=== PATIENT | female | born 1980 | race Caucasian/White ===

== ENCOUNTER 2016-10-17 07:30 | Emergency (ER) | payer BC ==
[~2016-10-17] VITALS: Ht 167.6 cm; Wt 115.2 kg
[~2016-10-17 07:30] MED LIST: BREA1EAC5 MC; DCS100C PO; HYDR-3720 PO; IBP800T PO; OXYC-272 PO; PREN1TAB39 PO
[2016-10-17 07:59] LABS: BILIRUBIN,URINE NEGATIVE (NEGATIVE); KETONES,URINE NEGATIVE (NEGATIVE); LEUKOCYTE ESTERASE ,URINE 2+ (NEGATIVE); NITRITE,URINE NEGATIVE (NEGATIVE); PH,URINE 6 (5-9); PROTEIN,URINE 1+ (NEGATIVE); UROBILINOGEN,URINE NORMAL (NORMAL)
[2016-10-17 08:12] LABS: SQUAMOUS EPITHELIAL CELL,UR >50 /HPF
[2016-10-17 08:13] LABS: YEAST,URINE FEW /HPF
--- NOTE | 2016-10-17 08:15 | ED General ---
General Chief Complaint: Abdominal/GI Problems Stated Complaint: 6 WKS PG,ABD PAIN LWR BACK PAIN Nursing Triage Note: PT 6 WEEKS , CC OF ABD PAIN, LOW BACK PAIN, VOMITED 3-4X'S THIS A.M. Nursing Sepsis Screen: No Definite Risk Source of Information: Patient Exam Limitations: No Limitations History of Present Illness Time Seen by Provider: 07:53 Initial Comments Here with complaint of low back pain since last night. Over the last day or 2 she's had some upset stomach and then the back pain last night. This morning she's vomited a few times. Denies dysuria or diarrhea. Denies vaginal discharge. Apparently had an ultrasound on Sunday which showed intrauterine . She is approximately 6 weeks . Denies blood in vomit or stool. Denies vaginal bleeding. Has not been sexually active since becoming . Timing/Duration: 1-2 Days Severity: Moderate Associated Systoms: No Fever/Chills, Nausea/Vomiting, No Shortness of Air, No Weakness Allergies and Home Medications Allergies Coded Allergies: Penicillins (Verified Allergy, Unknown, HIVES, 08/21/11) Home Medications No Active Prescriptions or Reported Meds Constitutional: see HPI, No chills, No fever Respiratory: no symptoms reported Cardiovascular: no symptoms reported Gastrointestinal: see HPI, No diarrhea, nausea, vomiting Genitourinary: no symptoms reported Expected Date of Delivery: Jun 07, 2017 Musculoskeletal: see HPI, back pain (left greater than right) Skin: no symptoms reported Psychiatric/Neurological: Denies Headache, Denies Weakness All Other Systems Reviewed Negative Unless Noted: Yes Past Ecmavth-Tlbdrj-Ivggrz Hx Patient Social History Alcohol Use: Denies Use Recreational Drug Use: No Smoking Status: Never a Smoker Recent Foreign Travel: No Contact w/Someone Who Travel: No Recent Infectious Disease Expo: No Recent Hopitalizations: No Immunizations Up To Date Tetanus Booster (TDap): Less than 5yrs Seasonal Allergies Seasonal Allergies: Yes Surgeries HX Surgeries: Yes Surgeries: Section Respiratory Hx Respiratory Disorders: Yes (SPORTS INDUCED ASTHMA) Respiratory Disorders: Asthma Cardiovascular Hx Cardiac Disorders: No Neurological Hx Neurological Disorders: No Reproductive System : Yes Hx : 3 Hx Para: 2 Hx Reproductive Disorders: No Genitourinary Hx Genitourinary Disorders: No Gastrointestinal Hx Gastrointestinal Disorders: No Musculoskeletal Hx Musculoskeletal Disorders: No Endocrine Hx Endocrine Disorders: No HEENT HX ENT Disorders: No Cancer Hx Cancer: No Psychosocial Hx Psychiatric Problems: No Integumentary HX Skin/Integumentary Disorder: No Blood Transfusions Hx Blood Disorders: No Reviewed Nursing Assessment Reviewed/Agree w Nursing PMH: Yes Family Medical History Family Medial History: Family history: Diabetes mellitus 03 FATHER History of - disorder 09 BROTHER (AUSTIC) Physical Exam Vital Signs Vital Sign - Last 12Hours 10/17/16 07:39 Temp 96.4 Pulse 67 Resp 20 B/P (MAP) 122/71 Pulse Ox 99 O2 Delivery Room Air Capillary Refill : Less Than 3 Seconds General Appearance: No Apparent Distress, WD/WN HEENT: PERRL/EOMI, Pharynx Normal Neck: Non Tender, Supple Respiratory: Lungs Clear, Normal Breath Sounds Cardiovascular: Regular Rate, Rhythm, No Murmur Gastrointestinal: Non Tender, Soft Back: No CVA Tenderness, No Vertebral Tenderness, Other (tender to the area of the left low back and right low back in a band across the low back but no specific vertebral tenderness.) Extremity: Normal Range of Motion, Non Tender Neurologic/Psychiatric: Alert, Oriented x3 Skin: Normal Color, Warm/Dry Progress/Results/Core Measures Results/Orders Lab Results Laboratory Tests Test 10/17/16 07:48 Range/Units Urine Color YELLOW Urine Clarity CLEAR Urine pH 6 5-9 Urine Specific Halliday 1.025 H 1.016-1.022 Urine Protein 1+ H NEGATIVE Urine Glucose (UA) NEGATIVE NEGATIVE Urine Ketones NEGATIVE NEGATIVE Urine Nitrite NEGATIVE NEGATIVE Urine Bilirubin NEGATIVE NEGATIVE Urine Urobilinogen NORMAL NORMAL MG/DL Urine Leukocyte Esterase 2+ H NEGATIVE Urine RBC (Auto) 2+ H NEGATIVE Urine RBC 2-5 H /HPF Urine WBC 5-10 H /HPF Urine Squamous Epithelial Cells >50 H /HPF Urine Crystals PRESENT H /LPF Urine Amorphous Sediment RARE CORA URATES H /LPF Urine Bacteria TRACE /HPF Urine Casts NONE /LPF Urine Mucus MODERATE H /LPF Urine Yeast FEW H /HPF Urine Culture Indicated YES My Orders Orders - PRIYANK LOCO MD Ua Culture If Indicated (10/17/16 07:36) Urine Culture (10/17/16 07:48) Ondansetron Oral Dissolve Tab (Zofran (10/17/16 09:33) Fluconazole Tablet (Ed Only) (Diflucan T (10/17/16 09:33) Vital Signs/I&O Vital Sign - Last 12Hours 10/17/16 07:39 Temp 96.4 Pulse 67 Resp 20 B/P (MAP) 122/71 Pulse Ox 99 O2 Delivery Room Air Blood Pressure Mean: 88 Progress Note : Progress Note Seen and evaluated. UA ordered. Patient is O+ blood type per records. Ultrasound apparently done at her OB doctor's office but no records here. Monitor patient. We did obtain copy of the OB records from her doctor's office. Ultrasound was done in the office and shows 6 weeks IUP. UA complete and does show yeast and question of urinary tract infection. Patient had just nausea. Zofran 4 mg by mouth given and this essentially resolved her symptoms. She did receive Diflucan 150 mg by mouth. Discharged home with return precautions. Patient verbalize understanding instructions and agreement with plan. Departure Impression Impression: Primary Impression: Nausea and vomiting Qualified Codes: R11.2 - Nausea with vomiting, unspecified Additional Impressions: Low back pain Qualified Codes: M54.5 - Low back pain Urinary tract infection Qualified Codes: N30.00 - Acute cystitis without hematuria Vaginal yeast infection Disposition: HOME, SELF-CARE Condition: Improved Departure-Patient Inst. Decision time for Depature: 10:11 Referrals: MONIE ROBLES DO (PCP) Primary Care Physician ANASTASIA RUBIN MD (Family) Primary Care Physician Patient Instructions: Nausea and Vomiting of (DC), Urinary Tract Infection, Adult (DC), Vaginal Yeast Infection (DC) Add. Discharge Instructions: All discharge instructions reviewed with patient and/or family. Voiced understanding. Drink plenty of fluids. Follow-up with your doctor this week for recheck and further evaluation. Return for worse pain, fever, vomiting, weakness, rhythm problems or other concerns as needed. Scripts Ondansetron (Ondansetron Odt) 4 Mg Tab.rapdis 4 MG PO Q6H Y for NAUSEA/VOMITING, #5 TAB 0 Refills Prov: PRIYANK LOCO MD 10/17/16 Cephalexin (Cephalexin) 500 Mg Tablet 500 MG PO BID for 7 Days, #14 TAB 0 Refills Prov: PRIYANK LOCO MD 10/17/16 PRIYANK LOCO MD Oct 17, 2016 08:15
[2016-10-17] MEDS ORDERED: FLUCONAZOLE 150 MG TABLET (ED ONLY) PO STA (09:33)
[2016-10-17] MEDS ORDERED: ONDANSETRON 4 MG (ZOFRAN) ORAL DISSOLVE TAB SL STA (09:33)
[2016-10-17] MEDS ORDERED: ONDA4TAB11 PO (10:13)
[2016-10-17] MEDS ORDERED: CEPH500T PO (10:13)
[2016-10-17 10:19] VITALS: BP 122/71
== END 2016-10-17 10:19 | disposition home or self-care (01) ==
LOC: EDUNIT# 07:30 → ER 07:33
DX: O23.41 Unspecified infection of urinary tract in pregnancy, first trimester (principal); O23.591 Infection of other part of genital tract in pregnancy, first trimester; B37.3 Candidiasis of vulva and vagina; O99.52 Diseases of the respiratory system complicating childbirth; J45.909 Unspecified asthma, uncomplicated; Z3A.01 Less than 8 weeks gestation of pregnancy; Z87.59 Personal history of other complications of pregnancy, childbirth and the puerperium
CPT/HCPCS: 81000; 87088; 99283

== ENCOUNTER 2017-05-23 11:50 | Outpatient (CLI) | payer BC ==
[~2017-05-23] VITALS: Ht 167.6 cm; Wt 120.4 kg
[~2017-05-23 11:50] MED LIST changes: +CEPH500T PO; +ONDA4TAB11 PO
[2017-05-23 11:59] VITALS: BP 111/78
== END 2017-05-23 12:35 | disposition home or self-care (01) ==
LOC: PREOP 11:50
PROVIDERS: ATTEND Obstetrics & Gynecology
DX: Z01.818 Encounter for other preprocedural examination (principal); Z11.2 Encounter for screening for other bacterial diseases; O34.219 Maternal care for unspecified type scar from previous cesarean delivery
CPT/HCPCS: 87081

== ENCOUNTER 2017-06-04 10:55 | Inpatient (IN) | payer BC ==
[~2017-06-04] VITALS: Ht 167.6 cm; Wt 120.4 kg
[~2017-06-04 10:55] MED LIST changes: +CITRIC ACID/SOB CIT (BICITRA) 30 ML UDC ONE; +FAMOTIDINE 20MG/2ML IV (PEPCID) ONE; +LACTATED RINGERS 1,000 ML IV ONE; +METOCLOPRAMIDE INJ 10 MG/2 ML (REGLAN) ONE; +ceFAZolin 2 GM IV Premixed 50 ML ONE; +metroNIDAZOLE 500MG/100ML IVPB 100 ML ONE
[2017-06-04 11:05] VITALS: BP 118/58
--- OUTSIDE RECORDS SUMMARY | 2017-06-04 11:23 | XMS REPORT | Continuity of Care Document ---
Author Author [facility] Organization [facility] Address Unknown Phone Unavailable Allergies Active Description Code Type Severity Reaction Onset Reported/Identified Relationship to Patient Clinical Status Yes Penicillins [id number] Drug Allergy Unknown HIVES 08/21/2011 Yes Penicillins [id number] Drug Allergy Mild RASH 05/23/2017 Medications There is no data. Problems Date Dx Coded Attending Type Code Diagnosis Diagnosed By 06/04/2011 Ot 644.03 08/23/2011 Ot 660.31 PERSIST OCCIPTPOST-DELIV 08/23/2011 Ot 661.21 UTERINE INERT NEC-DELIV 08/23/2011 Ot V06.1 DIPHTHERIA- TETANUS-PERTUSSIS, COMBINED [ 08/23/2011 Ot V27.0 DELIVER- SINGLE LIVEBORN 05/31/2013 ANASTASIA RUBIN MD Ot 218.2 SUBSEROUS LEIOMYOMA 05/31/2013 ANASTASIA RUBIN MD Ot 654.21 PREV DELIVRY W/ OR W/O MENT ANT 05/31/2013 ANASTASIA RUBIN MD Ot 663.21 CORD COMPRESS NEC-DELIV 05/31/2013 ANASTASIA RUBIN MD Ot 663.31 CORD ENTANGLE NEC-DELIV 05/31/2013 ANASTASIA RUBIN MD Ot 780.2 SYNCOPE AND COLLAPSE 05/31/2013 ANASTASIA RUBIN MD Ot V27.0 DELIVER-SINGLE LIVEBORN 06/22/2013 VIRAJ COREA APRN Ot 724.5 BACKACHE NOS 06/02/2014 Ot 787.02 06/02/2014 Ot 789.00 06/02/2014 ANASTASIA RUBIN MD Ot 654.23 06/02/2014 ANASTASIA RUBIN MD Ot V72.84 06/02/2014 ANASTASIA RUBIN MD, Ot V74.8 06/02/2014 Ot 787.02 06/02/2014 Ot 789.00 06/02/2014 SCOTTIE BOCANEGRA, ANASTASIA Brijesh Ot 654.23 06/02/2014 SCOTTIE BOCANEGRA, ANASTASIA Brijesh Ot V72.84 06/02/2014 SCOTTIE BOCANEGRA, ANASTASIA Brijesh Ot V74.8 08/16/2014 Ot 787.02 08/16/2014 Ot 789.00 08/16/2014 SCOTTIE BOCANEGRA, ANASTASIA Brijesh Ot 654.23 08/16/2014 SCOTTIE BOCANEGRA, ANASTASIA Coley Ot V72.84 08/16/2014 SCOTTIE BOCANEGRA, ANASTASIA Brijesh Ot V74.8 04/15/2015 Ot 787.02 04/15/2015 Ot 789.00 04/15/2015 SCOTTIE BOCANEGRA, ANASTASIA Brijesh Ot 654.23 04/15/2015 SCOTTIE BOCANEGRA, ANASTASIA Brijesh Ot V72.84 04/15/2015 SCOTTIE BOCANEGRA, ANASTASIA Coley Ot V74.8 04/15/2015 Ot 787.02 04/15/2015 Ot 789.00 04/15/2015 SCOTTIE BOCANEGRA, ANASTASIA Coley Ot 654.23 04/15/2015 SCOTTIE BOCANEGRA, ANASTASIA Brijesh Ot V72.84 04/15/2015 SCOTTIE BOCANEGRA, ANASTASIA Brijesh Ot V74.8 05/11/2015 Ot 787.02 05/11/2015 Ot 789.00 05/11/2015 SCOTTIE BOCANEGRA, ANASTASIA G Ot 654.23 05/11/2015 SCOTTIE BOCANEGRA, ANASTASIA G Ot V72.84 05/11/2015 SCOTTIE BOCANEGRA, ANASTASIA Coley Ot V74.8 10/17/2016 PRIYANK LOCO MD Ot B37.3 CANDIDIASIS OF VULVA AND VAGINA 10/17/2016 PRIYANK LOCO MD Ot J45.909 UNSPECIFIED ASTHMA, UNCOMPLICATED 10/17/2016 PRIYANK LOCO MD Ot O23.41 UNSP INFCT OF URINARY TRACT IN 10/17/2016 PRIYANK LOCO MD Ot O23.591 INFECTION OTH PRT GENITL TRCT IN PREGNAN 10/17/2016 PRIYANK LOCO MD Ot O99.52 DISEASES OF THE RESPIRATORY SYSTEM COMPL 10/17/2016 PRIYANK LOCO MD Ot O99.89 OTH DISEASES AND CONDITIONS COMPL PREG/C 10/17/2016 PRIYANK LOCO MD, Ot Z3A.01 LESS THAN 8 WEEKS GESTATION OF 10/17/2016 PRIYANK LOCO MD, Ot Z87.59 PERSONAL HISTORY OF COMP OF PREG, CHLDBR 10/19/2016 PRIYANK LOCO MD Ot B37.3 CANDIDIASIS OF VULVA AND VAGINA 10/19/2016 PRIYANK LOCO MD Ot J45.909 UNSPECIFIED ASTHMA, UNCOMPLICATED 10/19/2016 PRIYANK LOCO MD Ot O23.41 UNSP INFCT OF URINARY TRACT IN 10/19/2016 PRIYANK LOCO MD, Ot O23.591 INFECTION OTH PRT GENITL TRCT IN PREGNAN 10/19/2016 PRIYANK LOCO MD Ot O99.52 DISEASES OF THE RESPIRATORY SYSTEM COMPL 10/19/2016 PRIYANK LOCO MD Ot O99.89 OTH DISEASES AND CONDITIONS COMPL PREG/C 10/19/2016 PRIYANK LOCO MD, Ot Z3A.01 LESS THAN 8 WEEKS GESTATION OF 10/19/2016 PRIYANK LOCO MD, Ot Z87.59 PERSONAL HISTORY OF COMP OF PREG, CHLDBR 03/23/2017 ANASTASIA RUBIN MD Ot 654.23 PREV DELIVERY, ANTEPARTUM COND 03/23/2017 ANASTASIA RUBIN MD, Ot V72.84 EXAM PRE-OPERATIVE NOS 03/23/2017 ANASTASIA RUBIN MD, Ot V74.8 SCREEN-BACTERIAL DIS NEC 05/24/2017 ANASTASIA RUBIN MD, Ot O34.219 MATERNAL CARE FOR UNSP TYPE SCAR FROM NC 05/24/2017 ANASTASIA RUBIN MD, Ot Z01.818 ENCOUNTER FOR OTHER PREPROCEDURAL EXAMIN 05/24/2017 ANASTASIA RUBIN MD, Ot Z11.2 ENCOUNTER FOR SCREENING FOR OTHER BACTER Procedures Code Description Performed By Performed On 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/21/2011 74.1 LOW CERVICAL 08/21/2011 72.79 VACUUM EXTRACT DEL NEC 05/29/2013 74.1 LOW CERVICAL 05/29/2013 Results Test Result Range Complete urinalysis with reflex to culture - 10/17/16 07:48 Urine color determination YELLOW NRG Urine clarity determination CLEAR NRG Urine pH measurement by test strip 6 5-9 Specific gravity of urine by test strip 1.025 1.016- 1.022 Urine protein assay by test strip, semi-quantitative 1+ NEGATIVE Urine glucose detection by automated test strip NEGATIVE NEGATIVE Erythrocytes detection in urine sediment by light microscopy 2+ NEGATIVE Urine ketones detection by automated test strip NEGATIVE NEGATIVE Urine nitrite detection by test strip NEGATIVE NEGATIVE Urine total bilirubin detection by test strip NEGATIVE NEGATIVE Urine urobilinogen measurement by automated test strip (mass/volume) NORMAL NORMAL Urine leukocyte esterase detection by dipstick 2+ NEGATIVE Automated urine sediment erythrocyte count by microscopy (number/high power field) [HPF] NRG Automated urine sediment leukocyte count by microscopy (number/high power field ) [HPF] NRG Bacteria detection in urine sediment by light microscopy TRACE NRG Squamous epithelial cells detection in urine sediment by light microscopy >50 NRG Crystals detection in urine sediment by light microscopy PRESENT NRG Casts detection in urine sediment by light microscopy NONE NRG Mucus detection in urine sediment by light microscopy MODERATE NRG Complete urinalysis with reflex to culture YES NRG Yeast detection in urine sediment by light microscopy FEW NRG Amorphous sediment detection in urine sediment by light microscopy RARE CORA URATES NRG Bacterial urine culture - 10/17/16 07:48 URINE CULTURE RESULTS 10,000/ML - 100,000/ML NRG Methicillin resistant Staphylococcus aureus (MRSA) screening culture - 12:15 Methicillin resistant Staphylococcus aureus (MRSA) screening culture NEG NRG Encounters ACCT No. Visit Date/Time Discharge Status Pt. Type Provider Facility Loc./Unit Complaint [id number] 05/23/2017 11:50:00 05/23/2017 12:35:00 DIS Outpatient ANASTASIA RUBIN MD [facility] PREOP PREVIOUS [id number] 10/17/2016 07:33:00 10/17/2016 10:19:00 DIS Emergency PRIYAKN LOCO MD [facility] ER 6 WKS PG,ABD PAIN LWR BACK PAIN [id number] 06/22/2013 15:24:00 06/22/2013 17:07:00 DIS Emergency VIRAJ COREA APRN [facility] ER BACK PAIN [id number] 05/29/2013 09:50:00 05/31/2013 14:40:00 DIS Inpatient ANASTASIA RUBIN MD [facility] WS PREVIOUS [id number] 05/27/2013 09:03:00 05/27/2013 23:59:59 CLS Outpatient ANASTASIA RUBIN MD [facility] PREOP PREVIOUS [id number] 06/04/2017 13:00:00 PEN Preadmit ANASTASIA RUBIN MD PREVIOUS [id number] 08/21/2011 07:36:00 Document Registration [id number] 06/04/2011 00:05:00 Document Registration [id number] 11/25/2010 10:17:00 Document Registration 074/17/04/17/2017 16:11:30 04/17/2017 23:59:59 CLS Outpatient Katherine Rodriguez
[2017-06-04] MEDS ORDERED: LACTATED RINGERS 1,000 ML IV SCH (11:29)
[2017-06-04] MEDS ORDERED: FAMOTIDINE 20MG/2ML IV (PEPCID) IV ONE (11:30)
[2017-06-04] MEDS ORDERED: METOCLOPRAMIDE INJ 10 MG/2 ML (REGLAN) IV ONE (11:30)
[2017-06-04] MEDS ORDERED: CITRIC ACID/SOB CIT (BICITRA) 30 ML UDC PO ONE (11:30)
[2017-06-04] MEDS ORDERED: metroNIDAZOLE 500MG/100ML IVPB 100 ML IV ONE ×2 (11:30→11:45)
[2017-06-04] MEDS ORDERED: D5 LR IV SOLUTION 1,000 ML IV SCH (11:41)
[2017-06-04] MEDS ORDERED: ceFAZolin 2 GM IV Premixed 50 ML IV ONE (11:45)
[2017-06-04] MEDS ORDERED: MEPERIDINE (DEMEROL) INJ 100 MG/ML IM PRN (11:45)
[2017-06-04] MEDS ORDERED: MEASLES,MUMPS,RUBELLA 1 EA INJ SC ONE (11:45)
[2017-06-04] MEDS ORDERED: ceFAZolin INJECTION 2,000 MG in NS (IVPB) 100 ML IV ONE (11:45)
[2017-06-04] MEDS ORDERED: ONDANSETRON 4 MG/2 ML (SDV) Z0FRAN IVP PRN (11:45)
[2017-06-04] MEDS ORDERED: TETANUS,DIPTH,PERTUSS P/F (BOOSTRIX) 0.5 ML VIAL IM ONE (11:45)
[2017-06-04] MEDS ORDERED: PROMETHAZINE INJ 25 MG/ML (PHENERGAN) AMP IM PRN (11:45)
--- NOTE | 2017-06-04 11:46 | Progress Note-Pre Operative ---
Pre-Operative Progress Note H&P Reviewed The H&P was reviewed, patient examined and no changes noted. Date Seen by Provider: Jun 04, 2017 Time Seen by Provider: 11:46 Date H&P Reviewed: Jun 04, 2017 Time H&P Reviewed: 11:46 Pre-Operative Diagnosis: 39+ week gestation admitted for repeat ANASTASIA RUBIN MD Jun 04, 2017 11:46 am
[2017-06-04] MEDS: LACTATED RINGERS 1,000 ML IV SCH ×2 (11:49→12:39)
--- NOTE | 2017-06-04 11:50 | History & Physical ---
History and Physical Date Seen by Provider: Jun 04, 2017 Time Seen by Provider: 11:46 This patient is a 36-year-old 2 white female admitted now 39-4/ 7 weeks' gestation for a repeat delivery. She had previously requested removal of her fallopian tubes to decrease her lifetime risk for cancer. Has been discussed previously in clinic on several occasions is discussed again today. She is comfortable with that decision understands and wished she will lose her fertility but excepts that undesired side effects in order to gain the protection from cancer she denies rupture membranes or bleeding. A GBS culture was negative. Allergies are to penicillin which causes a rash Occasions are vitamins Surgical surgical and social histories are per the antepartum record HEENT exam is normal Neck is supple no lymphadenopathy no thyromegaly Abdomen is gravid soft nontender nondistended Extremities Showed no clubbing or cyanosis. There is no Homans sign. Pelvic exam is deferred Assessment and plan 39+ week gestation in patient with previous C-sections 2. Patient also request risk reducing salpingectomy. Surgical risks and complications recovery and follow-up have been fully discussed patient is ready to proceed. Allergies and Home Medications Allergies Coded Allergies: Penicillins (Verified Allergy, Mild, RASH, 05/23/17) Home Medications No Active Prescriptions or Reported Meds Patient Home Medication List Home Medication List Reviewed: Yes ANASTASIA RUBIN MD Jun 04, 2017 11:50 am
[2017-06-04] MEDS ORDERED: D5 LR IV SOLUTION 1,000 ML IV ONE (11:51)
[2017-06-04 12:10] VITALS: BP 138/69
[2017-06-04 12:25] LABS: BASOPHILS % (AUTO) 0 % (0-10); EOSINOPHILS # (AUTO) 0.2 10^3/uL (0.0-0.3); EOSINOPHILS % (AUTO) 2 % (0-10); HEMATOCRIT 35 % (35-52); LYMPHOCYTES # (AUTO) 2.6 X 10^3 (1.0-4.0); LYMPHOCYTES % (AUTO) 29 % (12-44); MEAN CORPUSCULAR HEMOGLOBIN 29 PG (25-34); MEAN CORPUSCULAR HGB CONC 34 G/DL (32-36); MEAN CORPUSCULAR VOLUME 84 FL (80-99); MEAN PLATELET VOLUME 11.3 FL (7.4-10.4); MONOCYTES # (AUTO) 0.4 X 10^3 (0.0-1.0); MONOCYTES % (AUTO) 5 % (0-12); NEUTROPHILS # (AUTO) 5.5 X 10^3 (1.8-7.8); NEUTROPHILS % (AUTO) 63 % (42-75); PLATELET COUNT 175 10^3/uL (130-400); RED BLOOD COUNT 4.21 10^6/uL (4.35-5.85); RED CELL DISTRIBUTION WIDTH 14.3 % (10.0-14.5); WHITE BLOOD COUNT 8.8 10^3/uL (4.3-11.0)
[2017-06-04] MEDS ORDERED: ONDANSETRON 4 MG/2 ML (SDV) Z0FRAN ONE (12:33)
[2017-06-04] MEDS ORDERED: OXYTOCIN/NORMAL SALINE 500 ML IV ONE ×2 (12:33→13:36)
[2017-06-04] MEDS ORDERED: ONDANSETRON 4 MG/2 ML (SDV) Z0FRAN IV PRN (13:45)
[2017-06-04] MEDS ORDERED: NALOXONE 0.4 MG/ML 1 ML (NARCAN) VIAL IV PRN (13:45)
[2017-06-04] MEDS ORDERED: diphenhydrAMINE 50 MG/ML INJ (BENADRYL) IV PRN (13:45)
[2017-06-04 15:00] VITALS: BP 118/69
[2017-06-04] MEDS ORDERED: IBUP-1780 PO (15:03)
[2017-06-04] MEDS ORDERED: OXYC-465 PO (15:03)
[2017-06-04] MEDS ORDERED: DOCU100C37 PO (15:03)
--- NOTE | 2017-06-04 15:04 | Discharge Instructions ---
Discharge Instructions Discharge Medications New, Converted or Re-Newed RX: RX on Chart Patient Instructions Patient Instructions: As directed Return to The Hospital For: As directed Activity & Diet Discharge Diet: No Restrictions Activity as Tolerated: No Orders-Post D/C & Referrals Follow Up Appt: RTC at any time your available after June 05, 2017 for incision check and staple removal. Call to make follow up appt. for patient in 4 weeks. Wound Care: Do not remove isabell and patient is discharged on June 05, 2017 Activity Per routine post instructions. Please call in RX to patient pharmacy. Diet as tolerated Patient may shower or tub bathe as desired. Continue home meds ANASTASIA RUBIN MD Jun 04, 2017 3:04 pm
[2017-06-04] MEDS: KETOROLAC 30 MG/ML VIAL IVP SCH ×2 (16:22→21:44)
[2017-06-04] MEDS: OXYTOCIN/NORMAL SALINE 500 ML IV SCH (16:22)
[2017-06-04 16:46] LABS: BILIRUBIN,URINE NEGATIVE (NEGATIVE); CLARITY,URINE CLEAR; COLOR,URINE YELLOW; GLUCOSE, URINE (UA) NEGATIVE (NEGATIVE); KETONES,URINE NEGATIVE (NEGATIVE); LEUKOCYTE ESTERASE ,URINE NEGATIVE (NEGATIVE); NITRITE,URINE NEGATIVE (NEGATIVE); PH,URINE 6.5 (5-9); PROTEIN,URINE NEGATIVE (NEGATIVE); UROBILINOGEN,URINE NORMAL (NORMAL)
[2017-06-04 16:55] LABS: BACTERIA,URINE MODERATE /HPF
[2017-06-04 17:45] VITALS: BP 96/55
[2017-06-04 19:57] VITALS: BP 112/54
[2017-06-04] MEDS: DOCUSATE SODIUM 100 MG (COLACE) CAP PO SCH (21:44)
--- NOTE | 2017-06-04 23:50 | OPERATIVE REPORT ---
DATE OF SERVICE: 06/04/2017 PREOPERATIVE DIAGNOSES: A 39+ weeks gestation with previous sections, admitted for repeat section with mild oligohydramnios. POSTOPERATIVE DIAGNOSES: A 39+ weeks gestation with previous sections, admitted for repeat section with mild oligohydramnios. OPERATIVE PROCEDURE: Repeat low transverse delivery of a viable male with Apgars that are 7 and 8 and 8 at 1 and 5 and 10 minutes respectively, weight 7 lbs. 8 oz. Cord blood pH was 7.21 and a time of 13:07. OPERATIVE DESCRIPTION: With the patient in the supine position under satisfactory spinal anesthesia, she was prepped and draped in the usual fashion for abdominal surgery. A repeat Pfannenstiel incision was made through the skin by removing the patient's previous Pfannenstiel incisional scar. The abdomen was then entered in the usual manner. Bladder retractor was placed into position and clean scalpel was used to make a 4 cm hysterotomy incision transversely across the lower uterine segment that was extended by blunt dissection, releasing a small amount of clear fluid on hysterotomy. A vigorous viable male was delivered via the uterine incision. Infant had Apgars and weight that is noted above. Cord blood and a time were noted above. The was bulb suctioned on delivery of the head again on completion of delivery. The umbilical cord was doubly clamped and cut and the infant was passed to the pediatric nurse in attendance for delivery. After cord bloods were obtained. The placenta delivered spontaneously Iglesias. It was normal with a 3-vessel cord. The uterus was exteriorized, the interior wiped clean with a wet laparotomy sponge. Uterine incision was then closed with a running lock suture of 2-0 Vicryl. Hemostasis was complete. The uterus was compressed kimberley nicely. There were numerous fibroids on and in the wall of the uterus. The patient had requested with her repeat , a risk reducing salpingectomy at this point, that was performed in the usual manner cauterizing the mesosalpinx and ligating the proximal end of the fallopian tube and then the distal blood supply. Both fallopian tubes were removed entirely intact and sent to pathology for permanent section. The uterus was now returned to the abdominal cavity. All blood clot and debris were removed from the abdominal cavity. Sponge and needle counts correct, hemostasis assured. The anterior parietal peritoneum was closed with running suture of 2-0 Vicryl. The rectus muscles were closed with that suture as well. The rectus fascia was closed with 2-0 Vicryl, subcutaneous tissue was closed with 2-0 Vicryl and the skin was stapled. Sponge and needle counts were correct on completion of the procedure. Estimated blood loss was around 400 mL. The patient tolerated the procedure well and was transferred to recovery room in stable condition. The had been taken stable to the full-term nursery under the care of the pediatric nurse. Job ID: [id number] DocumentID: [id number] Dictated Date: 06/04/2017 13:49:33 Loom Fixer Helper Date: 06/04/2017 23:50:07 Dictated By: ANASTASIA RUBIN MD MTDD
[2017-06-05 00:15] VITALS: BP 98/54
[2017-06-05 03:45] VITALS: BP 100/61
[2017-06-05] MEDS: KETOROLAC 30 MG/ML VIAL IVP SCH ×2 (03:48→10:41)
[2017-06-05] MEDS: OXYTOCIN/NORMAL SALINE 500 ML IV SCH (06:32)
--- NOTE | 2017-06-05 08:12 | Progress Note-Standard ---
Standard Progress Note Progress Notes/Assess & Plan Date Seen by Provider: Jun 05, 2017 Time Seen by Provider: 08:11 Progress/Assessment & Plan This patient is without complaint. She is ambulating, voiding, tolerating by mouth well, has good pain control. Patient denies chest pain, denies shortness of breath, denies nausea vomiting, denies headache. Vital Signs Date Time Temp Pulse Resp B/P (MAP) Pulse Ox O2 Delivery O2 Flow Rate FiO2 06/05/17 03:45 97.0 70 18 100/61 (74) 97 Room Air 06/05/17 00:15 96.9 81 18 98/54 (69) 97 Room Air 06/04/17 20:36 Room Air 06/04/17 19:57 98.5 88 17 112/54 (73) 96 Room Air 06/04/17 17:45 98.7 58 18 96/55 (69) 98 Room Air 06/04/17 15:00 97.8 63 18 118/69 (85) 100 Room Air 06/04/17 12:10 72 20 138/69 (92) Room Air 06/04/17 11:05 98.2 78 20 118/58 (78) Room Air I & O 06/05/17 07:00 Intake Total 4940 ml Output Total 1800 ml Balance 3140 ml Vital signs are stable. Patient is afebrile. The abdomen is benign. Extremities show no clubbing or cyanosis. There is no Homans sign. There is some pretibial pitting edema that is normal. Assessment and plan postoperative day number 1 status post 39 week repeat delivery. This patient's baby has been transferred to [facility]. Plan will be for discharge home today or tomorrow as the patient prefers Final Diagnosis Term repeat delivery ANASTASIA RUBIN MD Jun 05, 2017 8:12 am
[2017-06-05 08:45] VITALS: BP 121/67
[2017-06-05] MEDS: DOCUSATE SODIUM 100 MG (COLACE) CAP PO SCH ×2 (08:45→21:50)
[2017-06-05] MEDS: IBUPROFEN 800 MG (MOTRIN) TAB PO SCH ×2 (10:41→17:58)
[2017-06-05] MEDS: oxyCODONE/APAP 10/325MG (PERCOCET 10) TABLET PO PRN ×2 (10:41→17:58)
[2017-06-05 13:49] VITALS: BP 127/77
--- NOTE | 2017-06-05 14:51 | Anesthesia-Regional Post-Op ---
Regional Patient Condition Mental Status: Alert, Oriented x3 Circulation: Same as Pre-Op Headache: Absent Sensation: Full Recovery Motor Block: Absent Post Op Complications Complications None Follow Up Care/Instructions Patient Instructions None needed. Anesthesia/Patient Condition Patient is doing well, no complaints, stable vital signs, no apparent adverse anesthesia problems. No complications reported per nursing. VICTORIA DEL RIO CRNA Jun 05, 2017 14:51
[2017-06-05 17:45] VITALS: BP 125/78
[2017-06-06 00:07] VITALS: BP 108/66
[2017-06-06] MEDS: IBUPROFEN 800 MG (MOTRIN) TAB PO SCH ×2 (00:13→05:40)
[2017-06-06] MEDS: oxyCODONE/APAP 10/325MG (PERCOCET 10) TABLET PO PRN (05:41)
[2017-06-06 06:00] VITALS: BP 113/62
[2017-06-06] MEDS: DOCUSATE SODIUM 100 MG (COLACE) CAP PO SCH (07:46)
[2017-06-06] MEDS ORDERED: TETANUS,DIPTH,PERTUSS P/F (BOOSTRIX) 0.5 ML VIAL IM ONE (08:22)
--- NOTE | 2017-06-06 08:34 | Progress Note-Standard ---
Standard Progress Note Progress Notes/Assess & Plan Date Seen by Provider: Jun 06, 2017 Time Seen by Provider: 08:33 Progress/Assessment & Plan This patient is without complaint. She is ambulating, voiding, tolerating by mouth well, has good pain control. Patient denies chest pain, denies shortness of breath, denies nausea vomiting, denies headache. Vital Signs Date Time Temp Pulse Resp B/P (MAP) Pulse Ox O2 Delivery O2 Flow Rate FiO2 06/05/17 03:45 97.0 70 18 100/61 (74) 97 Room Air 06/05/17 00:15 96.9 81 18 98/54 (69) 97 Room Air 06/04/17 20:36 Room Air 06/04/17 19:57 98.5 88 17 112/54 (73) 96 Room Air 06/04/17 17:45 98.7 58 18 96/55 (69) 98 Room Air 06/04/17 15:00 97.8 63 18 118/69 (85) 100 Room Air 06/04/17 12:10 72 20 138/69 (92) Room Air 06/04/17 11:05 98.2 78 20 118/58 (78) Room Air I & O 06/05/17 07:00 Intake Total 4940 ml Output Total 1800 ml Balance 3140 ml Vital signs are stable. Patient is afebrile. The abdomen is benign. Extremities show no clubbing or cyanosis. There is no Homans sign. There is some pretibial pitting edema that is normal. Assessment and plan postoperative day number 1 status post 39 week repeat delivery. This patient's baby has been transferred to [facility]. Plan will be for discharge home today or tomorrow as the patient prefers June 06, 2017 Patient without complaint. She is ambulating, voiding, tolerating by mouth, has good pain control. She is ready for discharge home. Vital Signs Date Time Temp Pulse Resp B/P (MAP) Pulse Ox O2 Delivery O2 Flow Rate FiO2 06/06/17 06:00 97.1 80 18 113/62 (79) 98 Room Air 06/06/17 00:07 97.7 102 17 108/66 (80) 97 Room Air 06/05/17 17:45 97.6 84 125/78 (94) 06/05/17 13:49 97.9 73 18 127/77 (94) 100 Room Air 06/05/17 08:45 98.0 74 18 121/67 (85) 100 Room Air I & O 06/06/17 07:00 Intake Total 2722 ml Output Total 3200 ml Balance -478 ml Vital signs are stable. Patient is afebrile. The abdomen is benign. Surgical incision is clean dry and intact. Extreme show no clubbing cyanosis. There is some pretibial pitting edema that is normal. No Homans sign. Assessment and plan post operative day number 2 status post repeat doing well. Plan is for discharge home with follow-up in clinic ANASTASIA RUBIN MD Jun 06, 2017 8:34 am
== END 2017-06-06 09:55 | disposition home or self-care (01) | DRG 765 ==
LOC: LDRP 10:55
PROVIDERS: ADMIT Obstetrics & Gynecology; ATTEND Obstetrics & Gynecology
PROC: 0UT70ZZ Resection of Bilateral Fallopian Tubes, Open Approach (ICD-10-PCS; 2017-06-04)
PROC: 10D00Z1 Extraction of Products of Conception, Low, Open Approach (ICD-10-PCS; principal; 2017-06-04 12:39)
DX: O34.211 Maternal care for low transverse scar from previous cesarean delivery (principal); O41.03X0 Oligohydramnios, third trimester, not applicable or unspecified; Z40.03 Encounter for prophylactic removal of fallopian tube(s); Z3A.39 39 weeks gestation of pregnancy; Z37.0 Single live birth; Z23 Encounter for immunization
CPT/HCPCS: 36415; 81000; 85025; 86850; 86900; 86901; 90715; 94664

== ENCOUNTER 2018-12-26 09:35 | Emergency (ER) | payer OTHER, BC ==
[~2018-12-26] VITALS: Ht 167.7 cm; Wt 113.6 kg
[~2018-12-26 09:35] MED LIST changes: -CITRIC ACID/SOB CIT (BICITRA) 30 ML UDC ONE; +DOCU100C37 PO; -FAMOTIDINE 20MG/2ML IV (PEPCID) ONE; +IBUP-1780 PO; -LACTATED RINGERS 1,000 ML IV ONE; -METOCLOPRAMIDE INJ 10 MG/2 ML (REGLAN) ONE; +OXYC-465 PO; -ceFAZolin 2 GM IV Premixed 50 ML ONE; -metroNIDAZOLE 500MG/100ML IVPB 100 ML ONE
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
[2018-12-26] MEDS ORDERED: METH-313 PO (11:48)
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
[2018-12-26 12:03] VITALS: BP 126/93
== END 2018-12-26 12:03 | disposition home or self-care (01) ==
LOC: EDUNIT# 09:35 → ER 09:36
DX: S16.1XXA Strain of muscle, fascia and tendon at neck level, initial encounter (principal); J45.909 Unspecified asthma, uncomplicated; K21.9 Gastro-esophageal reflux disease without esophagitis; Z88.0 Allergy status to penicillin; V89.2XXA Person injured in unspecified motor-vehicle accident, traffic, initial encounter; Y92.410 Unspecified street and highway as the place of occurrence of the external cause
CPT/HCPCS: 72040; 73030

== ENCOUNTER → 2019-01-24 | Outpatient (CLI) | payer BC, OTHER ==
[~2019-01-24] MED LIST changes: +METH-313 PO
--- NOTE | 2019-01-28 09:57 | Diagnostic Imaging Report ---
Digital mammogram. Bilateral screening. This the patient's baseline study. At this time there are no current complaints. The fibroglandular tissue in both breasts is heterogeneously dense. This does limit the sensitivity of this exam. There is no primary or secondary sign of malignancy noted. Impression: There is no evidence for malignancy. ACR BI-RADS Category 1: Negative. Result letter will be mailed to the patient. Note: At least 10% of breast cancer is not imaged by mammography. Dictated by: Dictated on workstation # [id number]
== END ==
LOC: RAD 15:35
PROVIDERS: ATTEND Obstetrics & Gynecology
DX: Z12.31 Encounter for screening mammogram for malignant neoplasm of breast (principal)
CPT/HCPCS: 77067

== ENCOUNTER → 2019-11-12 | Outpatient (CLI) | payer BC ==
[~2019-11-12] MED LIST changes: -OXYC-465 PO; +OXYC-556 PO
--- NOTE | 2019-11-13 07:51 | NUR ---
Notified patient of her and her Childrens positive COVID test. Quarantine explained and questions answered.
== END ==
LOC: LABNPT 05:56
PROVIDERS: ATTEND Family Medicine
DX: U07.1 COVID-19 (principal); J06.9 Acute upper respiratory infection, unspecified
CPT/HCPCS: 87635

== ENCOUNTER 2021-02-12 14:16 | Emergency (ER) | payer BC ==
[~2021-02-12] VITALS: Ht 167 cm; Wt 117.0 kg
[2021-02-12 14:30] VITALS: BP 143/85
--- NOTE | 2021-02-12 14:59 | ED Integumentary General ---
General Chief Complaint: Laceration Stated Complaint: LACERATION ON RIGHT FINGER Nursing Triage Note: ARRIVED VIA AMB TO ROOM 06 WITH COMPLAINTS OF LACERATION TO RIGHT 5TH FINGER CAUSED BY A KNIFE. Source: patient Exam Limitations: no limitations History of Present Illness Date Seen by Provider: Feb 12, 2021 Time Seen by Provider: 14:50 Initial Comments Patient is a 40-year-old female who presents to the emergency department today with a chief complaint of laceration to the midportion of the dorsal aspect of her right fifth finger. Patient is a right-handed dominant female. She was using a pocket knife to cut something, she did not realize that the pocket knife did not lock and it closed over the top of her right pinky finger. Denies any numbness tingling or weakness. Tetanus is up-to-date, last shot was 4 years ago. No other complaints of recent illness or injury Timing/Duration: just prior to arrival Severity: mild Location: hands (5th finger) Associated Symptoms: denies symptoms Allergies and Home Medications Allergies Coded Allergies: Penicillins (Verified Allergy, Mild, RASH, 05/23/17) Patient Home Medication List Home Medication List Reviewed: Yes Docusate Sodium (Docusate Sodium) 100 Mg Capsule, 100 MG PO BID Prescribed by: ANASTASIA OCONNOR on 06/04/17 1503 Ibuprofen (Ibuprofen) 800 Mg Tablet, 800 MG PO Q6H Prescribed by: ANASTASIA OCONNOR on 06/04/17 1503 Methocarbamol (Robaxin-750) 750 Mg Tablet, 750 MG PO Q4H PRN for PAIN-MODERATE Prescribed by: VIRAJ COREA on 12/26/18 1148 Oxycodone HCl/Acetaminophen (Oxycodone-Acetaminophen 10-325) 1 Each Tablet, 1-2 TAB PO Q4HR PRN for PAIN-MODERATE TO SEVERE Prescribed by: ANASTASIA OCONNOR on 06/04/17 1503 Review of Systems Review of Systems Constitutional: see HPI EENTM: no symptoms reported Respiratory: no symptoms reported Cardiovascular: no symptoms reported Gastrointestinal: no symptoms reported Genitourinary: no symptoms reported Musculoskeletal: no symptoms reported Skin: other (laceration) Psychiatric/Neurological: No Symptoms Reported All Other Systems Reviewed Negative Unless Noted: Yes Past Phjywlm-Ibgdjo-Owpogy Hx Patient Social History Tobacco Use?: No Substance use?: No Alcohol Use?: No Immunizations Up To Date Tetanus Booster (TDap): Less than 5yrs PED Vaccines UTD: Yes Seasonal Allergies Seasonal Allergies: Yes Past Medical History Surgeries: Yes (Clay teeth, cs x2) Section Respiratory: Yes (SPORTS INDUCED ASTHMA) Asthma Cardiac: No Neurological: No Reproductive Disorders: No Female Reproductive Disorders: Denies Sexually Transmitted Disease: No HIV/AIDS: No Genitourinary: No Gastrointestinal: Yes (DURING ) Gastroesophageal Reflux Musculoskeletal: No Endocrine: No HEENT: Yes (READING GLASSES) Loss of Vision: Bilateral Hearing Impairment: Denies Cancer: No Psychosocial: No Integumentary: No Blood Disorders: No Adverse Reaction/Blood Tranf: No (N/A) Family Medical History Family history: Diabetes mellitus 03 FATHER History of - disorder 09 BROTHER (AUSTIC) No Family History of: Abdominal aortic aneurysm Alcoholism Cancer Cancer of colon Congestive heart failure Dementia Family history: Alzheimer's disease Family history: Arthritis Family history: Asthma Family history: Breast disease Family history: Cardiovascular disease Family history: Gastrointestinal disease Family history: Hypertension Family history: Thyroid disorder Heart disease History of - anemia History of - respiratory disease Kidney disease Myocardial infarction Parkinson's disease Prostate cancer Psychotic disorder Seizure disorder Stroke Physical Exam Vital Signs Vital Signs - First Documented 02/12/21 14:30 Temp 36.3 Pulse 73 Resp 16 B/P (MAP) 143/85 (104) Pulse Ox 99 O2 Delivery Room Air Capillary Refill : Less Than 3 Seconds General Appearance: WD/WN, no apparent distress Neck: normal inspection Respiratory: no respiratory distress, no accessory muscle use Extremities: normal range of motion, normal inspection Neurologic/Psychiatric: alert, normal mood/affect, oriented x 3 Skin: normal color, warm/dry Skin Problem Location: other (Right fifth finger, 1 cm superficial laceration that is well approximated at the midportion of the dorsal aspect of the finger.; Patient is distal neurovascularly intact. No active bleeding is noted.) Procedures/Interventions Wound Location: Upper Extremities Other Wound Location dorsum right 5th finger Wound Length (cm): 1 Wound's Depth, Shape: superficial, linear Wound Explored: clean Irrigated w/ Saline (ccs): 50 Betadine Prep?: No Other Closure Supply: Wound Adhesive Progress Wound margins approximated, skin affix applied. No active bleeding. Progress/Results/Core Measures Results/Orders Vital Signs/I&O 02/12/21 14:30 Temp 36.3 Pulse 73 Resp 16 B/P (MAP) 143/85 (104) Pulse Ox 99 O2 Delivery Room Air Blood Pressure Mean: 104 Progress Progress Note : Time: 14:58 Progress Note Wound is cleansed with Betasept and saline. Wound margins approximated with skin affix. Approximated well. Patient is counseled on wound care precautions as well as return precautions. She verbalized understanding. All questions are sought and answered. Departure Impression Primary Impression: Laceration of finger of right hand Qualified Codes: S61.216A - Laceration without foreign body of right little finger without damage to nail, initial encounter Disposition: HOME, SELF-CARE Condition: Stable Departure-Patient Inst. Decision time for Depature: 14:59 Referrals: MONIE ROBLES DO (PCP/Family) Primary Care Physician Patient Instructions: Laceration Repair With Glue ED Add. Discharge Instructions: Keep the wound clean dry and covered with a bandage for 2 days. Wash daily, twice a day with soap and water. The glue will slowly wear off over the course of about a week. Return to the emergency room for increased pain, redness, swelling or other concerning symptoms of infection. Follow-up with your primary care doctor as needed. BECKY BARRIOS MD Feb 12, 2021 14:59
== END 2021-02-12 15:22 | disposition home or self-care (01) ==
LOC: EDUNIT# 14:16 → ER 14:19
DX: S61.216A Laceration without foreign body of right little finger without damage to nail, initial encounter (principal); J45.909 Unspecified asthma, uncomplicated; W26.0XXA Contact with knife, initial encounter